=== PATIENT | female | born 1990 | race Caucasian/White ===

== ENCOUNTER → 2017-05-20 | Outpatient (REF) | payer OTHER, SELFPAY ==
[2017-05-20 18:08] LABS: ALBUMIN/GLOBULIN RATIO 1.21 (1.00-1.93); ALKALINE PHOSPHATASE 97 U/L (45-117); ALT/SGPT 30 U/L (12-78); ANION GAP 9 MEQ/L (8-16); AST/SGOT 18 U/L (7-37); BILIRUBIN,TOTAL 0.3 MG/DL (0.2-1.0); BLOOD UREA NITROGEN 16 MG/DL (7-18); CARBON DIOXIDE LEVEL 27 MEQ/L (21-32); CHLORIDE LEVEL 104 MEQ/L (98-107); CREATININE FOR GFR 0.83 MG/DL (0.55-1.30); GLOMERULAR FILTRATION RATE > 60.0 (>60); GLUCOSE, FASTING 98 MG/DL (70-100); HCG, SERUM QUANTITATIVE < 1.0 MIU/ML; POTASSIUM SERUM 4.3 MEQ/L (3.5-5.1); SODIUM LEVEL 140 MEQ/L (136-145); TOTAL PROTEIN 7.3 GM/DL (6.4-8.2)
[2017-05-20 19:18] LABS: ESTIMATED AVERAGE GLUCOSE 114 MG/DL (60-110); HEMOGLOBIN A1c 5.6 %
== END ==
LOC: M LAB REF 16:53
DX: R11.10 Vomiting, unspecified (principal)
CPT/HCPCS: 83036

== ENCOUNTER → 2017-06-22 | Outpatient (REF) | payer OTHER | LOC: M LAB REF 17:29 | DX: F41.9 Anxiety disorder, unspecified (principal) | CPT/HCPCS: 84443 ==

== ENCOUNTER → 2017-06-23 | Outpatient (REF) | payer OTHER | LOC: M LAB REF 09:09 | DX: Z12.4 Encounter for screening for malignant neoplasm of cervix (principal); A59.09 Other urogenital trichomoniasis | CPT/HCPCS: 88142 ==

== ENCOUNTER 2017-07-11 09:09 | Emergency (ER) | payer OTHER | END 2017-07-11 10:22 | disposition home or self-care (01) | LOC: M ED 09:09 | DX: S93.492A Sprain of other ligament of left ankle, initial encounter (principal); X50.1XXA Overexertion from prolonged static or awkward postures, initial encounter; Y92.098 Other place in other non-institutional residence as the place of occurrence of the external cause; F17.200 Nicotine dependence, unspecified, uncomplicated | CPT/HCPCS: 73610 ==

== ENCOUNTER 2018-04-13 00:39 | Emergency (ER) | payer OTHER ==
[~2018-04-13 00:39] MED LIST: NORCOTAB PO
[2018-04-13 01:08] LABS: HEMATOCRIT 44.2 % (36.0-47.0); HEMOGLOBIN 14.7 g/dl (12.0-15.5); MEAN CORPUSCULAR HEMOGLOBIN 28.9 pg (27.0-33.0); MEAN CORPUSCULAR HGB CONC 33.3 g/dl (32.0-36.5); PLATELET COUNT, AUTOMATED 333 10^3/uL (150-450); RED BLOOD COUNT 5.08 10^6/uL (4.00-5.40); WHITE BLOOD COUNT 17.7 10^3/uL (4.0-10.0)
[2018-04-13 01:19] LABS: HCG, SERUM QUALITATIVE NEGATIVE (NEGATIVE)
[2018-04-13 01:27] LABS: ALBUMIN 4.3 GM/DL (3.2-5.2); ALT/SGPT 33 U/L (12-78); BILIRUBIN,DIRECT 0.1 MG/DL (0.0-0.2); BILIRUBIN,TOTAL 0.2 MG/DL (0.2-1.0); BLOOD UREA NITROGEN 14 MG/DL (7-18); CALCIUM LEVEL 9.1 MG/DL (8.5-10.1); CARBON DIOXIDE LEVEL 25 MEQ/L (21-32); CHLORIDE LEVEL 109 MEQ/L (98-107); CREATININE FOR GFR 1.08 MG/DL (0.55-1.30); GLOMERULAR FILTRATION RATE > 60.0 (>60); GLUCOSE, FASTING 99 MG/DL (70-100); LIPASE 139 U/L (73-393); POTASSIUM SERUM 3.7 MEQ/L (3.5-5.1); SODIUM LEVEL 143 MEQ/L (136-145); TOTAL PROTEIN 7.5 GM/DL (6.4-8.2)
[2018-04-13 01:29] LABS: ATYPICAL LYMPH 3 % (0-5); EOSINOPHILS 4 % (0-5); LYMPHOCYTES 36 % (16-52); MONOCYTES 3 % (0-8); NEUTROPHILS 54 % (35-75)
[2018-04-13 01:30] LABS: PLATELET ESTIMATE NORMAL (NORMAL)
[2018-04-13] MEDS ORDERED: METOCLOPRAMIDE INJ 10MG/2ML VIAL (J2765) IV ONE ×2 (01:30→04:30)
[2018-04-13] MEDS: MORPHINE 4 MG/ML 1ML VIAL/SYRINGE (J2270) IV PRN ×2 (01:31→02:23)
[2018-04-13 01:50] LABS: C REACTIVE PROTEIN QUANTITATIV 0.54 MG/DL (0.00-0.30)
--- NOTE | 2018-04-13 02:38 | REPVR ---
EXAM: CT Head Without Contrast EXAM DATE/TIME: 04/13/2018 1:00 AM CLINICAL HISTORY: 28 years old, female; Headache TECHNIQUE: Axial computed tomography images of the head/brain without contrast. All CT scans at this facility use at least one of these dose optimization techniques: automated exposure control; mA and/or kV adjustment per patient size (includes targeted exams where dose is matched to clinical indication); or iterative reconstruction. COMPARISON: No relevant prior studies available. FINDINGS: Brain: There is no evidence for an acute large vessel territorial infarct, intracranial hemorrhage, mass, mass effect, or herniation. The cortical gyration pattern, thalami, and cerebellum are normal in appearance. There is a small focus of low attenuation along the inferior aspect of the right basal ganglia, which is most compatible with a dilated perivascular space. Incidental note is made of calcification of the pineal gland. Brainstem: Unremarkable. Midline shift: There is no midline shift. Ventricles: Normal. No ventriculomegaly. Bones/joints: Unremarkable. No acute fracture. Sinuses: Visualized sinuses are unremarkable. No acute sinusitis. Mastoid air cells: Visualized mastoid air cells are unremarkable. No mastoid effusion. Soft tissues: Unremarkable. IMPRESSION: No CT evidence for an acute intracranial process. Electronically signed by: Chucho Loo On 04/13/2018 02:37:57 AM
[2018-04-13 04:09] LABS: APPEARANCE, CSF CLEAR (CLEAR); COLOR, CSF COLORLESS (COLORLESS); CSF TUBE# CELL CNT TUBE 1; CSF TUBE# CELL CNT TUBE 4
[2018-04-13 04:18] LABS: CSF TUBE# GLU TUBE 3; CSF TUBE# TP TUBE 3; GLUCOSE CSF 65 MG/DL (40-75); TOTAL PROTEIN,CSF 30 MG/DL (15-45)
[2018-04-13] MEDS ORDERED: diphenhydrAMINE INJ 50MG/ML VIAL (J1200) IV ONE (04:30)
[2018-04-13] MEDS ORDERED: KETOROLAC 30 MG/ML VIAL (J1885) IV ONE (04:30)
[2018-04-13] MEDS ORDERED: NS 1,000 ML IV ONE (04:30)
[2018-04-13 06:12] VITALS: BP 128/76
== END 2018-04-13 06:15 | disposition home or self-care (01) ==
LOC: M ED 00:39
DX: R51 Headache (principal); Z72.0 Tobacco use
CPT/HCPCS: 36415; 70450; 80048; 80076; 81001; 82945; 83690; 84157; 84703; 85025; 86140; 87070; 87205; 89050; 96361; 96374; 96375; 96376; 99284; J1200; J1885; J2270; J2765

== ENCOUNTER 2018-04-16 09:39 | Emergency (ER) | payer OTHER ==
[~2018-04-16] VITALS: Ht 180.3 cm; Wt 118.2 kg
[2018-04-16] MEDS ORDERED: METOCLOPRAMIDE INJ 10MG/2ML VIAL (J2765) IV ONE (10:15)
[2018-04-16] MEDS ORDERED: NS 1,000 ML IV ONE (10:15)
[2018-04-16 10:58] LABS: HEMATOCRIT 42.4 % (36.0-47.0); HEMOGLOBIN 14.2 g/dl (12.0-15.5); MEAN CORPUSCULAR HEMOGLOBIN 28.5 pg (27.0-33.0); MEAN CORPUSCULAR HGB CONC 33.5 g/dl (32.0-36.5); PLATELET COUNT, AUTOMATED 305 10^3/uL (150-450); RED BLOOD COUNT 4.99 10^6/uL (4.00-5.40); WHITE BLOOD COUNT 12.4 10^3/uL (4.0-10.0)
[2018-04-16 11:22] LABS: BLOOD UREA NITROGEN 15 MG/DL (7-18); CALCIUM LEVEL 9.1 MG/DL (8.5-10.1); CARBON DIOXIDE LEVEL 28 MEQ/L (21-32); CHLORIDE LEVEL 105 MEQ/L (98-107); CREATININE FOR GFR 0.99 MG/DL (0.55-1.30); GLOMERULAR FILTRATION RATE > 60.0 (>60); GLUCOSE, FASTING 95 MG/DL (70-100); POTASSIUM SERUM 4.2 MEQ/L (3.5-5.1); SODIUM LEVEL 141 MEQ/L (136-145)
[2018-04-16] MEDS ORDERED: KETOROLAC 30 MG/ML VIAL (J1885) IV ONE (13:30)
[2018-04-16] MEDS ORDERED: diphenhydrAMINE INJ 50MG/ML VIAL (J1200) IV ONE (13:30)
--- NOTE | 2018-04-16 14:41 | REP ---
MRI BRAIN: Multiple sequences obtained in the axial and sagittal planes. Ventricles are normal in size and position with no midline shift or mass effect. Turner-white differentiation is well maintained. Small focus of T2 signal hyperintensity is seen in the inferior right basal ganglia 8 mm in diameter as seen on prior CT 04/13/2018. This is most compatible with a dilated perivascular space. No other abnormal signal is seen in the brain, brainstem or cerebellum. Seventh and eighth cranial nerve complexes are grossly unremarkable. Globes are intact. Visualized paranasal sinuses demonstrate no abnormal signal. There is no abnormal signal on ADC or DWI imaging that would suggest the presence of an acute infarct. IMPRESSION: No acute abnormalities as discussed above. Electronically Signed by Naseem Turner MD 04/16/2018 07:08 P
[2018-04-16 14:42] VITALS: BP 157/88
--- NOTE | 2018-04-16 14:43 | REP ---
MRA BRAIN: MRA brain is performed utilizing 3D [id number] imaging with MIP reconstruction images. The vertebral arteries and the basilar artery are widely patent with no stenosis. Intracranial carotid vessels are widely patent with no stenosis. Anterior communicating arteries are patent. Anterior, middle, and posterior cerebral arteries are patent without definite narrowing. No aneurysm or AVM is seen. IMPRESSION: Normal MRA brain. Electronically Signed by Naseem Turner MD 04/16/2018 07:08 P
== END 2018-04-16 14:57 | disposition home or self-care (01) ==
LOC: M ED 09:39
DX: R51 Headache (principal); F17.200 Nicotine dependence, unspecified, uncomplicated
CPT/HCPCS: 70544; 70551; 80048; 85027; 96374; 96375; 99284; J1200; J1885; J2765

== ENCOUNTER 2018-06-28 10:55 | Emergency (ER) | payer OTHER ==
[~2018-06-28] VITALS: Ht 180.3 cm; Wt 108.0 kg
[~2018-06-28 10:55] MED LIST changes: +HYDR-3715 PO; -NORCOTAB PO
[2018-06-28 13:15] VITALS: BP 167/78
--- NOTE | 2018-06-28 14:13 | REP ---
LEFT FOOT, FOUR VIEWS: HISTORY: Pain. There is no acute fracture or dislocation. The joint spaces are normal in appearance. IMPRESSION: There is no acute fracture or dislocation. Electronically Signed by Alen Culver MD 06/28/2018 02:15 P
== END 2018-06-28 13:28 | disposition home or self-care (01) ==
LOC: M ED 10:55
DX: S96.912A Strain of unspecified muscle and tendon at ankle and foot level, left foot, initial encounter (principal); X58.XXXA Exposure to other specified factors, initial encounter; Y92.89 Other specified places as the place of occurrence of the external cause; F17.210 Nicotine dependence, cigarettes, uncomplicated

== ENCOUNTER → 2024-05-24 | Outpatient (CLI) | payer OTHER ==
[2024-05-24 14:37] LABS: HEMATOCRIT 38.8 % (36.0-47.0); HEMOGLOBIN 12.8 g/dl (12.0-15.5); MEAN CORPUSCULAR HEMOGLOBIN 30.2 pg (27.0-33.0); MEAN CORPUSCULAR VOLUME 91.5 fl (80.0-96.0); PLATELET COUNT, AUTOMATED 276 10^3/uL (150-450); RED BLOOD COUNT 4.24 10^6/uL (4.00-5.40); WHITE BLOOD COUNT 12.4 10^3/uL (4.0-10.0)
[2024-05-24 15:11] LABS: HIV 1&2 SCREEN NEGATIVE (NEGATIVE)
[2024-05-24 15:19] LABS: HEPATITIS C VIRUS ABY INDEX 0.03 INDEX (<0.8)
== END ==
LOC: M PLALAB 10:24
PROVIDERS: ATTEND Advanced Practice Midwife
DX: Z34.81 Encounter for supervision of other normal pregnancy, first trimester (principal)

== ENCOUNTER → 2024-06-20 | Outpatient (REF) | payer OTHER ==
[2024-06-20 14:18] LABS: CREATININE,RANDOM URINE 77.4 MG/DL
[2024-06-20 14:27] LABS: Trichomonas vaginalis (AMP) NOT DETECTED (NEGATIVE)
[2024-06-20 14:51] LABS: GC DNA AMPLIFICATION NEGATIVE (NEGATIVE)
== END ==
LOC: M PLALAB 09:51
PROVIDERS: ATTEND Advanced Practice Midwife
DX: Z34.81 Encounter for supervision of other normal pregnancy, first trimester (principal)

== ENCOUNTER → 2024-06-20 | Outpatient (CLI) | payer OTHER ==
[2024-06-20 15:10] LABS: HEMOGLOBIN 12.3 g/dl (12.0-15.5); MEAN CORPUSCULAR HEMOGLOBIN 29.8 pg (27.0-33.0); MEAN CORPUSCULAR HGB CONC 33.2 g/dl (32.0-36.5); MEAN CORPUSCULAR VOLUME 89.6 fl (80.0-96.0); PLATELET COUNT, AUTOMATED 319 10^3/uL (150-450); RED BLOOD COUNT 4.13 10^6/uL (4.00-5.40); WHITE BLOOD COUNT 15.2 10^3/uL (4.0-10.0)
[2024-06-20 15:14] LABS: LDH LACTATE DEHYDROGENASE 186 U/L (120-246)
[2024-06-20 15:15] LABS: ALT/SGPT 24 U/L (7.0-40); AST/SGOT 17 U/L (<34); BILIRUBIN,TOTAL 0.5 MG/DL (0.3-1.2); CREATININE FOR GFR 0.59 MG/DL (0.55-1.30); GLOMERULAR FILTRATION RATE > 90.0 (>60)
[2024-06-20 15:17] LABS: URIC ACID 4.4 MG/DL (3.1-7.8)
== END ==
LOC: M PLALAB 10:51
PROVIDERS: ATTEND Nurse Practitioner Family
DX: Z34.80 Encounter for supervision of other normal pregnancy, unspecified trimester (principal); Z3A.00 Weeks of gestation of pregnancy not specified

== ENCOUNTER → 2024-06-20 | Outpatient (CLI) | payer OTHER | LOC: M PLALAB 10:49 | PROVIDERS: ATTEND Advanced Practice Midwife | DX: Z34.81 Encounter for supervision of other normal pregnancy, first trimester (principal); Z3A.00 Weeks of gestation of pregnancy not specified ==

== ENCOUNTER → 2024-10-17 | Outpatient (CLI) | payer OTHER ==
[~2024-10-17] MED LIST changes: +LABE100T6 PO; +LORA-1164 PO; +MULTTAB20 PO; +PREN200C PO; +TUMS500C PO; +VITA100T59 PO
[2024-10-17 13:55] LABS: PLATELET COUNT, AUTOMATED 273 10^3/uL (150-450)
[2024-10-17 14:25] LABS: GLUCOSE CHALLENGE TEST 1 HOUR 173 MG/DL (LESS THAN 140)
[2024-10-17 14:49] LABS: Trichomonas vaginalis (AMP) NOT DETECTED (NEGATIVE)
[2024-10-17 14:55] LABS: HIV 1&2 SCREEN NEGATIVE (NEGATIVE)
[2024-10-17 15:03] LABS: HEPATITIS C VIRUS ABY INDEX < 0.02 INDEX (<0.8)
[2024-10-17 15:12] LABS: GC DNA AMPLIFICATION NEGATIVE (NEGATIVE)
== END ==
LOC: M PLALAB 08:55
PROVIDERS: ATTEND Advanced Practice Midwife
DX: Z34.02 Encounter for supervision of normal first pregnancy, second trimester (principal)

== ENCOUNTER → 2024-10-23 | Outpatient (CLI) | payer OTHER ==
[~2024-10-23] MED LIST changes: -LABE100T6 PO; -LORA-1164 PO; -MULTTAB20 PO; -PREN200C PO; -TUMS500C PO; -VITA100T59 PO
== END ==
LOC: M WHC 07:28
PROVIDERS: ATTEND Nurse Practitioner Family
DX: O10.013 Pre-existing essential hypertension complicating pregnancy, third trimester (principal); Z3A.30 30 weeks gestation of pregnancy

== ENCOUNTER 2024-10-28 15:55 | Outpatient (CLI) | payer OTHER ==
[~2024-10-28] VITALS: Ht 180.3 cm; Wt 131.9 kg
[2024-10-28 16:20] VITALS: BP 134/66
[2024-10-28] MEDS ORDERED: PREN200C PO (16:23)
[2024-10-28] MEDS ORDERED: VITA100T59 PO (16:23)
[2024-10-28] MEDS ORDERED: TUMS500C PO (16:23)
[2024-10-28] MEDS ORDERED: HOME MED LIST COMPLETE! XX SCH (16:25)
[2024-10-28 17:07] LABS: APPEARANCE, URINE HAZY (CLEAR); BACTERIA, URINE AUTO NEGATIVE (NEGATIVE); BILIRUBIN, URINE AUTO NEGATIVE (NEGATIVE); BLOOD, URINE BLOOD NEGATIVE (NEGATIVE); GLUCOSE, URINE (UA) AUTO 3+ mg/dL (NEGATIVE); KETONE, URINE AUTO NEGATIVE (NEGATIVE); LEUKOCYTE ESTERASE, URINE AUTO NEGATIVE (NEGATIVE); MUCUS, URINE SMALL (NEGATIVE); NITRITE, URINE AUTO NEGATIVE (NEGATIVE); PROTEIN, URINE AUTO NEGATIVE (NEGATIVE); RBC, URINE AUTO 0 /HPF (0-3); SPECIFIC GRAVITY URINE AUTO 1.012 (1.002-1.035); SQUAMOUS EPITHELIAL CELL UR AU 11 /HPF (0-6); UROBILINOGEN, URINE AUTO 0.2 mg/dL (0.0-2.0); WBC, URINE AUTO 1 /HPF (0-3)
[2024-10-28 17:09] LABS: PLATELET COUNT, AUTOMATED 242 10^3/uL (150-450)
[2024-10-28 17:31] LABS: ALT/SGPT 20 U/L (7.0-40); AST/SGOT 15 U/L (<34); CALCIUM LEVEL 8.7 MG/DL (8.5-10.1); CARBON DIOXIDE LEVEL 22 MMOL/L (20-31); CHLORIDE LEVEL 108 MMOL/L (98-107); CREATININE FOR GFR 0.54 MG/DL (0.55-1.30); GLOMERULAR FILTRATION RATE > 90.0 (>60); POTASSIUM SERUM 4.1 MMOL/L (3.5-5.1); SODIUM LEVEL 140 MMOL/L (136-145)
[2024-10-28 17:43] VITALS: BP 163/79
[2024-10-28 18:03] VITALS: BP 138/68
== END 2024-10-28 19:23 | disposition home or self-care (01) ==
LOC: M LDO 15:55
PROVIDERS: ATTEND Obstetrics & Gynecology
DX: O10.013 Pre-existing essential hypertension complicating pregnancy, third trimester (principal); O34.219 Maternal care for unspecified type scar from previous cesarean delivery; O99.013 Anemia complicating pregnancy, third trimester; D50.9 Iron deficiency anemia, unspecified; Z3A.31 31 weeks gestation of pregnancy
CPT/HCPCS: 36415; 59025; 80053; 81001; 85027; G0463

== ENCOUNTER 2024-11-02 17:05 | Emergency (ER) | payer OTHER ==
[~2024-11-02 17:05] MED LIST changes: +PREN200C PO; +TUMS500C PO; +VITA100T59 PO
[2024-11-02] MEDS ORDERED: LABE100T6 PO (17:42)
[2024-11-02] MEDS ORDERED: MULTTAB20 PO (17:42)
[2024-11-02] MEDS ORDERED: LORA-1164 PO (17:42)
== END 2024-11-02 17:07 | disposition admitted as inpatient to this hospital (09) ==
LOC: M ED 17:05
DX: Z53.21 Procedure and treatment not carried out due to patient leaving prior to being seen by health care provider (principal)

== ENCOUNTER 2024-11-02 17:16 | Outpatient (CLI) | payer OTHER ==
[~2024-11-02] VITALS: Ht 180.3 cm; Wt 132.6 kg
[2024-11-02 17:36] VITALS: BP 131/74
[2024-11-02] MEDS ORDERED: MULTTAB20 PO (17:42)
[2024-11-02] MEDS ORDERED: LORA-1164 PO (17:42)
[2024-11-02] MEDS ORDERED: LABE100T6 PO (17:42)
[2024-11-02] MEDS ORDERED: HOME MED LIST COMPLETE! XX SCH (17:45)
== END 2024-11-02 18:45 | disposition home or self-care (01) ==
LOC: M LDO 17:16
PROVIDERS: ATTEND Advanced Practice Midwife
DX: O26.853 Spotting complicating pregnancy, third trimester (principal); O26.893 Other specified pregnancy related conditions, third trimester; O10.013 Pre-existing essential hypertension complicating pregnancy, third trimester; R10.2 Pelvic and perineal pain; Z3A.32 32 weeks gestation of pregnancy
CPT/HCPCS: 59025; G0463

== ENCOUNTER → 2024-11-20 | Outpatient (CLI) | payer OTHER ==
[~2024-11-20] MED LIST changes: +LABE100T6 PO; +LORA-1164 PO; +MULTTAB20 PO
== END ==
LOC: M WHC 08:29
PROVIDERS: ATTEND Nurse Practitioner Family
DX: O10.013 Pre-existing essential hypertension complicating pregnancy, third trimester (principal); O36.63X0 Maternal care for excessive fetal growth, third trimester, not applicable or unspecified; O99.213 Obesity complicating pregnancy, third trimester; O34.219 Maternal care for unspecified type scar from previous cesarean delivery; E66.9 Obesity, unspecified; Z67.31 Type AB blood, Rh negative; Z3A.34 34 weeks gestation of pregnancy

== ENCOUNTER → 2024-11-28 | Outpatient (REF) | payer OTHER ==
[~2024-11-28] MED LIST changes: +FERR32TA PO; +FLUTISP
== END ==
LOC: M PLALAB 09:05
PROVIDERS: ATTEND Obstetrics & Gynecology
DX: Z53.9 Procedure and treatment not carried out, unspecified reason (principal)